=== PATIENT | male | born 1990 | race Two or more races ===

== ENCOUNTER 2016-09-22 21:04 | Emergency (ER) | payer SELFPAY ==
[~2016-09-22] VITALS: Ht 170.2 cm; Wt 77.1 kg
== END 2016-09-23 05:38 ==
LOC: ER 21:13
DX: S46.912A Strain of unspecified muscle, fascia and tendon at shoulder and upper arm level, left arm, initial encounter (principal); R07.9 Chest pain, unspecified; V49.9XXA Car occupant (driver) (passenger) injured in unspecified traffic accident, initial encounter; Y93.89 Activity, other specified; Y92.89 Other specified places as the place of occurrence of the external cause; Y99.8 Other external cause status
CPT/HCPCS: 71010; 73030

== ENCOUNTER 2021-02-28 08:14 | Emergency (ER) | payer SELFPAY ==
[~2021-02-28] VITALS: Ht 175.3 cm; Wt 88.9 kg
[2021-02-28 09:12] VITALS: BP 144/96
[2021-02-28] MEDS ORDERED: methylPREDNISolone SOD SUCC 125 MG/2 ML VL IM ONE (09:30)
[2021-02-28] MEDS ORDERED: cefTRIAXone SOD 1,000 MG VL IM ONE (09:30)
== END 2021-02-28 09:57 | disposition home or self-care (01) ==
LOC: ER 08:14
DX: J02.9 Acute pharyngitis, unspecified (principal); F17.210 Nicotine dependence, cigarettes, uncomplicated
CPT/HCPCS: 96372; 99284; J0696; J2930

== ENCOUNTER 2023-02-18 10:53 | Emergency (ER) | payer MEDICAID ==
[~2023-02-18] VITALS: Ht 175.3 cm; Wt 88.9 kg
[2023-02-18] MEDS ORDERED: THIAMINE 100mg/ml INJ (200mg/2ml VIAL) IV ONE (11:15)
[2023-02-18] MEDS ORDERED: SODIUM CHLORIDE 0.9% 2,000 ML IV ONE (11:15)
[2023-02-18] MEDS ORDERED: SODIUM CHLORIDE 0.9% 1,000 ML IV ONE ×2 (11:15)
[2023-02-18] MEDS ORDERED: IOHEXOL 300 MG/ML 100ML BOTTLE IJ ONE (11:18)
[2023-02-18 11:31] LABS: Basophils # (auto) 0.1 10 ^3/uL (0-0.2); Monocytes # (auto) 0.9 10 ^3/uL (0-1.3); Red Blood Cells 3.57 10^6/uL (4.5-5.90)
[2023-02-18 11:33] LABS: Basophils % (auto) 0.9 % (0.0-2.0); Eosinophils # (auto) 0 10 ^3/uL (0-0.8); Eosinophils % (auto) 0.5 % (0.0-7.0); Hematocrit 43.1 % (41.0-53.0); Hemoglobin 14.9 g/dL (13.5-17.5); Lymphocytes # (auto) 2.5 10 ^3/uL (0.4-5.4); Lymphocytes % (auto) 27.2 % (10.0-50.0); Mean Corpuscular Hemoglobin 41.8 pg (28.0-32.0); Mean Corpuscular Hgb Conc. 34.6 g/dL (32.0-36.0); Mean Corpuscular Volume 120.6 fL (80.0-100.0); Monocytes % (auto) 10.1 % (0.0-12.0); Neutrophils # (auto) 5.6 10 ^3/uL (1.6-8.6); Neutrophils % (auto) 61.3 % (37.0-80.0); Nucleated Red Blood Cells % 0.2 %; Red Cell Distribution Width 15.1 % (11.8-14.3); White Blood Cell 9.1 10^3/uL (4.4-10.8)
[2023-02-18 11:46] LABS: Alanine Aminotransferase 155 U/L (7-40); Albumin 4.2 g/dL (3.2-4.8); Alkaline Phosphatase 118 U/L (46-116); Anion Gap 13 (5-15); Aspartate Aminotransferase 269 U/L (13-40); BUN/Creatinine Ratio 7.1 (10.0-20.0); Blood Urea Nitrogen 6 mg/dL (9-23); Calcium 8.6 mg/dL (8.5-10.1); Carbon Dioxide 30 mmol/L (20-30); Chloride 97 mmol/L (98-107); Glucose 133 mg/dL (74-106); Sodium 140 mmol/L (136-145)
[2023-02-18 11:47] LABS: Bilirubin, Total 1.1 mg/dL (0.2-1.0); Total Protein 7.2 g/dL (5.7-8.2)
[2023-02-18] MEDS ORDERED: POTASSIUM CHL 20MEQ/100ML 100 ML IV ONE (12:00)
[2023-02-18 12:03] VITALS: PULSE 120
[2023-02-18] MEDS ORDERED: LIDOCAINE 1% HCL (LOCAL ANESTH.) INJ 20ML MDV ONE (12:16)
[2023-02-18] MEDS ORDERED: MORPHINE SULFATE 4 MG/ML SYR/VIAL ONE (12:26)
[2023-02-18] MEDS ORDERED: MORPHINE SULFATE 4 MG/ML SYR/VIAL IV ONE (12:30)
[2023-02-18 13:13] VITALS: BP 98/63; PULSE 94; RESP 29; TEMP 96.8; O2SAT 100
== END 2023-02-18 13:38 | disposition short-term general hospital (02) ==
LOC: ER 10:53
DX: S27.1XXA Traumatic hemothorax, initial encounter (principal); F17.210 Nicotine dependence, cigarettes, uncomplicated; M54.2 Cervicalgia; V03.99XA Pedestrian with other conveyance injured in collision with car, pick-up truck or van, unspecified whether traffic or nontraffic accident, initial encounter; Y93.89 Activity, other specified; Y92.89 Other specified places as the place of occurrence of the external cause; Y99.8 Other external cause status
CPT/HCPCS: 31500; 36415; 36430; 36556; 70450; 71045; 71260; 72125; 73590; 74177; 80053; 80320; 85025; 86850; 86900; 86901; 86920; 93005; 96361; 96374; 99291; J2001; J2270; J7030; P9016; Q9967